=== PATIENT | male | born 1980 | race Caucasian/White ===

== ENCOUNTER 2018-12-25 10:34 | Emergency (ER) | payer OTHER ==
[~2018-12-25] VITALS: Ht 190.5 cm; Wt 111.1 kg
[2018-12-25] MEDS ORDERED: NORCO 5-325 TA1 EAC1 PO (12:25)
[2018-12-25] MEDS ORDERED: IBUPROFEN 600600 M1 PO (12:25)
[2018-12-25 12:40] VITALS: BP 118/72
== END 2018-12-25 12:41 | disposition home or self-care (01) ==
LOC: ER 10:34
DX: S61.412A Laceration without foreign body of left hand, initial encounter (principal); F17.210 Nicotine dependence, cigarettes, uncomplicated; W26.8XXA Contact with other sharp object(s), not elsewhere classified, initial encounter; Y93.89 Activity, other specified; Y92.89 Other specified places as the place of occurrence of the external cause; Y99.0 Civilian activity done for income or pay